=== PATIENT | male | born 1985 | race Caucasian/White ===

== ENCOUNTER 2018-10-01 10:02 | Emergency (ER) | payer SELFPAY ==
[~2018-10-01] VITALS: Ht 167.6 cm; Wt 51.3 kg
[~2018-10-01 10:02] MED LIST: IBUP-1542 PO
[2018-10-01 10:07] VITALS: BP 129/75; PULSE 108; RESP 16; Ht 167.6 cm; Wt 51.3 kg
== END 2018-10-01 12:30 | disposition home or self-care (01) ==
LOC: FTE 10:02
DX: M54.2 Cervicalgia (principal); M25.561 Pain in right knee; M25.562 Pain in left knee; R07.9 Chest pain, unspecified
CPT/HCPCS: 71045; 72125; 73562